=== PATIENT | female | born 1980 | race Asian ===

== ENCOUNTER 2017-05-27 06:09 | Inpatient (IN) | payer OTHER ==
--- NOTE | 2017-05-26 18:03 | MH ---
cc: CHRIS MARQUES M.D. DATE OF ADMISSION: 05/27/2017 HISTORY OF PRESENT ILLNESS: The patient is a 37-year-old [place] female 2, para 2 with a long history of fibroids who presented to the office this past December complaining of increasing right lower quadrant pain and pain with her menses and she has made the decision to proceed with treatment of her fibroids at this time. She would like to have another trial so we are going to preserve her fertility. Her fibroid is a 13 cm pedunculated fibroid off the right superior aspect of the uterus. The plan will be for an abdominal myomectomy. She is aware of the risks of the surgery are including and not limited to infection, bleeding, damage to internal organs requiring repair such as damage to the pelvic vasculature, the bladder, the ureter and the bowel and the patient desires to proceed. PAST MEDICAL HISTORY: Negative. PAST SURGICAL HISTORY: section x2. MEDICATIONS: None. ALLERGIES: None. SOCIAL HISTORY: No tobacco. Occasional alcohol. No drug use. She is engaged and currently works in [employer]. FAMILY HISTORY: Family history is noncontributory. GYNECOLOGIC HISTORY: No abnormal Pap. History of Chlamydia x1 status post treatment. OBSTETRICAL HISTORY: x2. PHYSICAL EXAMINATION: WEIGHT: 148. HEIGHT: 5 feet 2. VITAL SIGNS: Blood pressure 114/68, pulse is 70. BREASTS: Without masses, nodes or discharge. CHEST: Clear to auscultation. CARDIAC: Regular rate and rhythm without murmurs, rubs or gallops. ABDOMEN: The abdomen is soft, nontender and nondistended. There is an abdominopelvic mass in the right lower quadrant slightly tender to palpation consistent with her pedunculated fibroid. No costovertebral angle tenderness. No hernias. PELVIC EXAM: Normal external female genitalia without lesions. Vaginal vault without lesions. Cervix without lesions. Uterus is enlarged, slightly tender. Overall, the right pedunculated fibroid measures about 14 weeks sized, overall the uterus is about 10 to 12 weeks size. I cannot appreciated adnexa. LABORATORY DATA: Laboratory values on the patient include: Pap smear from July of 2016 is negative. An ultrasound that was done this summer revealed a 13 cm right-sided pedunculated fibroid. ASSESSMENT: Symptomatic uterine fibroids with a large pedunculated fibroid. PLAN: The plan will be for abdominal myomectomy. MD LATRICE Urrutia/DMITRY /5:33 PM /5:52 PM
[~2017-05-27] VITALS: Ht 157.5 cm; Wt 64.4 kg
[~2017-05-27 06:09] MED LIST: OXYC1TAB63 PO; PREN29TA PO
[2017-05-27] MEDS ORDERED: ceFAZolin 2 GM PREMIX 50 ML IV SCH (06:30)
[2017-05-27] MEDS ORDERED: INSULIN HUMAN REGULAR 1,000 UNITS/10 ML VIAL SQ PRN (06:30)
[2017-05-27] MEDS ORDERED: CHLORHEXIDINE GLUCONATE 2 % 1 PACK (2 CLOTHS) TOPICAL PRN (06:30)
[2017-05-27] MEDS ORDERED: LACTATED RINGER'S 1000 ML IV PRN (06:30)
[2017-05-27] MEDS ORDERED: POVIDONE IODINE 5% (ANTISEPSIS KIT) 4 APPLICATIONS EACH NARE PRN (06:30)
[2017-05-27] MEDS ORDERED: SODIUM CHLORID 0.9% 500 ML IV PRN (06:30)
[2017-05-27] MEDS ORDERED: METOPROLOL TARTRATE 25 MG TAB PO PRN (06:30)
[2017-05-27 07:07] LABS: AUTOMATED NEUTROPHIL # 3.9 TH/MM3 (1.8-7.7); BASOPHIL # 0.1 TH/MM3 (0-0.2); EOSINOPHIL # 0.2 TH/MM3 (0-0.4); EOSINOPHIL % 3.1 % (0.0-4.0); HEMATOCRIT 39.6 % (35.0-46.0); HEMO FLAGS DIFF FINAL; LYMPH % 30.9 % (9.0-44.0); LYMPHOCYTE # 2.1 TH/MM3 (1.0-4.8); MEAN CELL VOLUME 89.7 FL (80.0-100.0); MEAN CORPUSCULAR HEMOGLOBIN 30.9 PG (27.0-34.0); MEAN CORPUSCULAR HGB CONC 34.4 % (32.0-36.0); MONO % 6.7 % (0.0-8.0); NEUT % 58.3 % (16.0-70.0); PLATELET COUNT 330 TH/MM3 (150-450); RED BLOOD COUNT 4.41 MIL/MM3 (4.00-5.30); WHITE BLOOD COUNT 6.7 TH/MM3 (4.0-11.0)
[2017-05-27] MEDS ORDERED: VASOPRESSIN 20 UNITS/ML VIAL (IVTITR) ONE (07:17)
[2017-05-27] MEDS ORDERED: SODIUM CHLORIDE 0.9% 20 ML VIAL ONE (07:22)
[2017-05-27] MEDS ORDERED: HYDROmorphone HCL PF 2 MG/ML VIAL ONE (07:26)
[2017-05-27] MEDS ORDERED: ACETAMINOPHEN 1000 MG/100 ML 100 ML IV ONE (07:26)
[2017-05-27 07:38] LABS: BETA HCG QUANT LESS THAN 1 MIU/ML (0-5)
[2017-05-27] MEDS ORDERED: oxyCODONE/ACETAMINOPHEN 10 MG/325 MG TAB PO PRN (09:45)
[2017-05-27] MEDS ORDERED: ONDANSETRON ODT 4 MG TAB SL PRN (09:45)
[2017-05-27] MEDS ORDERED: SODIUM CHLORIDE 0.9% FLUSH 10 ML FLUSH IV FLUSH PRN (09:45)
[2017-05-27] MEDS ORDERED: DO NOT ADM ANY ANTICOAGULANT DRUGS PRN (09:53)
[2017-05-27] MEDS ORDERED: MORPHINE SULFATE 2 MG/ML INJ IV PUSH PRN (10:00)
[2017-05-27] MEDS: LACTATED RINGER'S 1000 ML INJ 1,000 ML IV SCH ×2 (10:40→17:04)
--- NOTE | 2017-05-27 11:13 | MP ---
cc: CHRIS MARQUES M.D. DATE OF SURGERY: 05/27/2017 PREOPERATIVE DIAGNOSIS Symptomatic uterine fibroids with pelvic pain and dysmenorrhea. POSTOPERATIVE DIAGNOSIS Symptomatic uterine fibroids with pelvic pain and dysmenorrhea. PROCEDURE PERFORMED Abdominal myomectomy. OPERATING SURGEON Dr. Chris Marques. ANESTHESIA General endotracheal FINDINGS Findings in surgery included about a 14 cm isolated fibroid coming off the right fundal region. No other fibroids noted. Normal tubes and ovaries bilaterally. No pelvic adhesive disease. ESTIMATED BLOOD LOSS 50 cc. COMPLICATIONS None. PROCEDURE IN DETAIL After proper consents were obtained, the patient was taken to the operating room where general endotracheal anesthesia was applied. She was then placed in dorsal position, sterilely prepped and draped and a Narayan catheter was placed. At this time using a sharp knife revision of a prior Pfannenstiel skin incision was performed. This was carried down to the fascia using the Bovie cautery. The fascia was nicked in the midline, extended superolaterally on each side. We then the muscles, identified the peritoneum, grasped it with two hemostats and entered sharply with Metzenbaum scissors. We then stretched the abdominopelvic cavity. We were able to deliver out the uterus and inspected it. Indeed the uterus appeared normal, just with a large 14 cm solitary fibroid sitting on the right top of it. I went ahead and injected right over the surface of the fibroid with a Pitressin mixture. We then made an incision about 6 cm long with the Bovie cautery and incised into the fibroid. We then grabbed the uterine serosa with the Allis clamps and then sharply and bluntly dissected the fibroid out of its covering. That came out nicely without difficulty, all intact. I then went ahead and achieved hemostasis using interrupted sutures of 0 Vicryl in an interrupted [id number] fashion. I did two layers of that and then I trimmed off the excess serosa and ran that with a 3-0 Vicryl in a baseball suture stitch type fashion. Excellent hemostasis was noted. Irrigation was performed in the abdominopelvic cavity. Hemostasis was assured. We overlaid the uterine incision with Interceed. We then went ahead and re-approximated the muscles using #1 Vicryl suture x1. We then closed the fascia using 0 Vicryl starting at each apex and meeting in the midline in a running fashion. Irrigation was performed of the subcu. Hemostasis was achieved with Bovie cautery. We closed the space using some interrupted sutures of 3-0 Vicryl. We then closed the skin using 4-0 Monocryl in a subcu fashion. Counts were correct and the patient was stable to the recovery room. Chris Marques MD CCD/BT /10:49 AM /10:57 AM
[2017-05-27 11:20] VITALS: BP 98/57; PULSE 54; RESP 16; TEMP 98.5; O2SAT 98
[2017-05-27 15:30] VITALS: BP 96/51; PULSE 69; RESP 18; TEMP 98.8; O2SAT 98
[2017-05-27] MEDS: oxyCODONE/ACETAMINOPHEN 5 MG/325 MG TAB PO PRN ×3 (15:30→23:30)
[2017-05-27 19:59] VITALS: BP 102/58; PULSE 81; RESP 18; TEMP 98.3; O2SAT 98
[2017-05-27 20:00] VITALS: BP 105/64; PULSE 81; RESP 18; TEMP 98.4; O2SAT 97
[2017-05-27] MEDS: SODIUM CHLORIDE 0.9% FLUSH 10 ML FLUSH IV FLUSH SCH (21:00)
[2017-05-28] VITALS: BP_SYST 105; BP_SYST 110; BP_DIAS 66; BP_DIAS 78; PULSE 58; PULSE 80; RESP 18; TEMP 97.8; TEMP 98.2; O2SAT 97
[2017-05-28] MEDS: KETOROLAC TROMETHAMINE 30 MG/ML (IVP) VIAL IV PUSH PRN ×4 (02:30→23:34)
[2017-05-28 03:07] VITALS: BP 102/57; PULSE 60; RESP 18; TEMP 97.9
[2017-05-28] MEDS: oxyCODONE/ACETAMINOPHEN 5 MG/325 MG TAB PO PRN (04:50)
[2017-05-28 05:53] LABS: AUTOMATED NEUTROPHIL # 7.5 TH/MM3 (1.8-7.7); BASOPHIL % 0.2 % (0.0-2.0); EOSINOPHIL # 0.1 TH/MM3 (0-0.4); EOSINOPHIL % 0.7 % (0.0-4.0); HEMATOCRIT 32.1 % (35.0-46.0); HEMO FLAGS DIFF FINAL; LYMPH % 25.4 % (9.0-44.0); LYMPHOCYTE # 2.8 TH/MM3 (1.0-4.8); MEAN CELL VOLUME 91.6 FL (80.0-100.0); MEAN CORPUSCULAR HEMOGLOBIN 30.6 PG (27.0-34.0); MEAN CORPUSCULAR HGB CONC 33.4 % (32.0-36.0); NEUT % 66.7 % (16.0-70.0); PLATELET COUNT 252 TH/MM3 (150-450); RED CELL DISTRIBUTION WIDTH 12.7 % (11.6-17.2); WHITE BLOOD COUNT 11.2 TH/MM3 (4.0-11.0)
--- NOTE | 2017-05-28 07:55 | HHI.PR ---
Subjective Remarks Doing well, pain is well controlled, eating well. Objective Vital Signs Vital Signs Date Time Temp Pulse Resp B/P (MAP) Pulse Ox O2 Delivery O2 Flow Rate FiO2 05/28/17 03:07 97.9 60 18 102/57 (72) 05/28/17 00:00 98.2 80 18 110/66 (81) 05/28/17 00:00 97.8 58 18 105/78 (87) 97 05/27/17 20:00 98.4 81 18 105/64 (78) 97 05/27/17 19:59 98.3 81 18 102/58 (73) 98 05/27/17 15:30 98.8 69 18 96/51 (66) 98 05/27/17 11:20 98.5 54 16 98/57 (71) 98 05/27/17 10:45 98.2 55 14 96/54 (68) 100 Nasal Cannula 2 05/27/17 10:30 52 16 97/55 (69) 100 Nasal Cannula 2 05/27/17 10:15 53 13 92/54 (67) 100 Nasal Cannula 2 05/27/17 10:00 61 15 101/55 (70) 99 Nasal Cannula 2 05/27/17 09:54 98.3 65 14 109/59 (76) 100 Nasal Cannula 2 05/27/17 08:40 58 101/62 I/O 05/27/17 05/27/17 05/27/17 05/28/17 05/28/17 05/28/17 07:00 15:00 23:00 07:00 15:00 23:00 Intake Total 1210 ml Output Total 200 ml 3425 ml 1000 ml Balance 1010 ml -3425 ml -1000 ml Intake IV Total 10 ml Other 1200 ml Output Urine Total 150 ml 3425 ml 1000 ml Estimated Blood Loss 50 ml Result Diagram: 05/28/17 0528 Objective Remarks Chest is clear, regular rate and rhythm. Abdomen is soft and non-distended. Incision is clean and dry. Ext no CCE. A/P Assessment and Plan Post Op Day 1 Doing well 1. pain management 2. advance diet Caro Taylor MD May 28, 2017 07:55
[2017-05-28 08:01] VITALS: BP 93/41; PULSE 52; RESP 16; TEMP 97.3; O2SAT 99
[2017-05-28 08:07] VITALS: BP 92/59
[2017-05-28] MEDS: SODIUM CHLORIDE 0.9% FLUSH 10 ML FLUSH IV FLUSH SCH ×2 (09:42→21:00)
[2017-05-28] MEDS ORDERED: oxyCODONE/ACETAMINOPHEN 5 MG/325 MG TAB PO PRN ×2 (09:45)
[2017-05-28 13:30] VITALS: BP_SYST 87; BP_DIAS 59; BP_DIAS 69; PULSE 59; RESP 18; TEMP 98.1
[2017-05-28 21:00] VITALS: BP 122/77; PULSE 66; TEMP 98.1; O2SAT 20
[2017-05-29] VITALS: BP 91/55; PULSE 63; RESP 16; TEMP 98.3
[2017-05-29] MEDS: KETOROLAC TROMETHAMINE 30 MG/ML (IVP) VIAL IV PUSH PRN (06:06)
[2017-05-29] MEDS ORDERED: OXYC1TAB63 PO (07:55)
--- NOTE | 2017-05-29 07:56 | HHI.DCPOC ---
Discharge Care Plan Diagnosis: (1) Fibroids, subserous Report Symptoms to Your Doctor -Temperature above 100.5 degrees -Redness, of incision or excessive or foul smelling drainage -Unusual pain or calf pain -Increased vaginal bleeding -Painful or difficulty urinating -Feelings of extreme sadness or anxiety after 2 weeks Goals to Promote Your Health * To prevent worsening of your condition and complications * To maintain your health at the optimal level Directions to Meet Your Goals Take your medications as prescribed Follow your dietary instruction Follow activity as directed Ensure plenty of rest for recovery Drink fluids for hydration Keep your appointments as scheduled Take your immunizations and boosters as scheduled If your symptoms worsen call your PCP, if no PCP go to Urgent Care Center or Emergency Room Smoking is Dangerous to Your Health. Avoid second hand smoke Call the 24-hour crisis hotline for domestic abuse at Caro Taylor MD May 29, 2017 07:56
[2017-05-29 08:00] VITALS: BP 100/57; PULSE 76; RESP 16; TEMP 98.4; O2SAT 100
== END 2017-05-29 09:35 | disposition home or self-care (01) | DRG 743 ==
LOC: HSDI 06:09 → H1EA 11:08
PROVIDERS: ADMIT Obstetrics & Gynecology; ATTEND Obstetrics & Gynecology
PROC: 0UB90ZZ Excision of Uterus, Open Approach (ICD-10-PCS; principal; 2017-05-27 08:11)
DX: D25.2 Subserosal leiomyoma of uterus (principal); N94.6 Dysmenorrhea, unspecified; Z87.891 Personal history of nicotine dependence
CPT/HCPCS: 84702; 85025; 86850; 86900; 86901; 88305; 94150; J0131; J0690; J1170; J1885; J7120